=== PATIENT | female | born 1990 | race African-American/Black ===

== ENCOUNTER 2017-12-12 22:59 | Emergency (ER) | payer MEDICAID, OTHER ==
[~2017-12-12] VITALS: Ht 165.1 cm; Wt 54.0 kg
[2017-12-12 23:14] VITALS: BP 101/61
== END 2017-12-13 01:30 | disposition left against medical advice (07) ==
LOC: ER 23:12
DX: R07.9 Chest pain, unspecified (principal); Z53.21 Procedure and treatment not carried out due to patient leaving prior to being seen by health care provider
CPT/HCPCS: 93005